=== PATIENT | female | born 1935 | race Two or more races ===

== ENCOUNTER 2016-08-18 21:59 | Emergency (ER) | payer OTHER ==
[~2016-08-18] VITALS: Ht 160 cm; Wt 63.5 kg
[~2016-08-18 21:59] MED LIST: ALBU0.084 NEB; AMLO5TAB2 PO; FLUT250M2; GABA-339 PO; GABA300C8 PO; OME20T PO; OXYB5TAB61 PO; RANI-226 PO; SIMV-8 PO; TIOTCAP HHN
[2016-08-18 22:44] LABS: Basophils # (auto) 0.1 uL; Basophils % (auto) 0.8 % (0.0-2.0); DEFINITIVE VIEW TRANSMISSION; Eosinophils # (auto) 0.2 uL; Eosinophils % (auto) 3.2 % (0.0-7.0); Hematocrit 36.2 % (36.0-46.0); Hemoglobin 11.7 g/dL (12.2-16.2); Lymphocytes % (auto) 14.1 % (10.0-50.0); Mean Corpuscular Hemoglobin 25.7 pg (28.0-32.0); Mean Corpuscular Hgb Conc. 32.3 g/dL (32.0-36.0); Mean Corpuscular Volume 79.7 fL (80.0-100.0); Mean Platelet Volume 7.1 fL (7.4-10.4); Monocytes # (auto) 0.4 uL; Monocytes % (auto) 5.5 % (0.0-12.0); Neutrophils # (auto) 5.4 uL; Neutrophils % (auto) 76.4 % (37.0-80.0); Platelet Count (auto) 453 10^3/uL (140-450)
[2016-08-18 22:58] LABS: Albumin 3.4 g/dL (3.4-5.0); BUN/Creatinine Ratio 20.8; Calcium 8.3 mg/dL (8.5-10.1); Magnesium 2.3 mg/dL (1.6-2.6)
[2016-08-18 23:03] LABS: Bilirubin, Total 0.4 mg/dL (0.2-1.0); Total Protein 7.6 g/dL (6.4-8.2)
[2016-08-19 00:49] LABS: Temperature: 21.9 C (20.0-25.0)
[2016-08-19] MEDS ORDERED: ONDANSETRON HCL 4 MG/2 ML VIAL IV ONE (01:45)
[2016-08-19 02:56] LABS: Urine RBC None Seen /hpf (0 - 4)
[2016-08-19 03:02] LABS: Urine Bilirubin Negative (Negative); Urine Blood Negative /uL (Negative); Urine Color Yellow (Yellow); Urine Glucose Normal (Normal); Urine Ketone Negative (Negative); Urine Nitrite Negative (Negative); Urine Urobilinogen Normal (Negative)
[2016-08-19] MEDS ORDERED: DEXAMETHASONE SOD PHOS 10MG/1ML VIAL INJ IV ONE (04:45)
[2016-08-19 07:55] VITALS: BP 135/93
== END 2016-08-19 08:05 | disposition short-term general hospital (02) ==
LOC: ER 22:15
DX: C34.11 Malignant neoplasm of upper lobe, right bronchus or lung (principal); C79.31 Secondary malignant neoplasm of brain; I10 Essential (primary) hypertension; J44.9 Chronic obstructive pulmonary disease, unspecified; Z98.51 Tubal ligation status; Z90.49 Acquired absence of other specified parts of digestive tract
CPT/HCPCS: 36415; 36600; 70450; 71250; 80053; 81001; 82805; 83605; 83735; 83880; 84484; 85025; 87040; 93005; 96374; 96375; 99285; J1100; J2405